=== PATIENT | female | born 1985 | race Asian ===

== ENCOUNTER 2019-03-27 18:42 | Emergency (ER) | payer OTHER ==
[~2019-03-27] VITALS: Ht 157.5 cm; Wt 60.0 kg
[~2019-03-27 18:42] MED LIST: IBUP100T53 PO
[2019-03-27] MEDS ORDERED: SODIUM CHLORIDE 0.9% 1,000 ML IV ONE (19:34)
[2019-03-27] MEDS ORDERED: DIPH25CA85 PO (19:34)
[2019-03-27] MEDS ORDERED: FAMOTIDINE 10 MG/ML 2 ML VIAL IVP ONE (19:45)
[2019-03-27] MEDS ORDERED: MethylPREDNISolone SOD SUCC 125 MG/2 ML VIAL IVP ONE (19:45)
[2019-03-27 22:32] VITALS: BP 103/66
== END 2019-03-27 23:15 | disposition home or self-care (01) ==
LOC: EMS 18:44
DX: T78.2XXA Anaphylactic shock, unspecified, initial encounter (principal); F41.9 Anxiety disorder, unspecified; R06.02 Shortness of breath; Z91.013 Allergy to seafood
CPT/HCPCS: 93005; 96374; 96375; 99285; J2930; J3490; J7030